=== PATIENT | female | born 1985 | race African-American/Black ===

== ENCOUNTER 2019-03-17 17:12 | Emergency (ER) | payer OTHER | END 2019-03-17 17:34 | disposition left against medical advice (07) | LOC: ER 17:12 | DX: Z53.21 Procedure and treatment not carried out due to patient leaving prior to being seen by health care provider (principal) ==

== ENCOUNTER 2019-11-28 03:41 | Emergency (ER) | payer BC, OTHER ==
[2019-11-28 04:39] LABS: HEMATOCRIT 40.2 % (36.0-47.0); HEMOGLOBIN 13.6 g/dL (12.0-15.5); MEAN CORPUSCULAR HEMOGLOBIN 29.9 pg (27.0-33.4); MEAN CORPUSCULAR HGB CONC 33.8 g/dL (32.0-36.0); MEAN CORPUSCULAR VOLUME 88 fl (80-97); PLATELET COUNT 409 10^3/uL (150-450); RED BLOOD COUNT 4.55 10^6/uL (3.72-5.28); RED CELL DISTRIBUTION WIDTH 14.1 % (11.5-14.0); WHITE BLOOD COUNT 25.4 10^3/uL (4.0-10.5)
[2019-11-28 04:49] LABS: ALBUMIN 3.7 g/dL (3.5-5.0); ALKALINE PHOSPHATASE 199 U/L (38-126); ANION GAP 12 (5-19); ASPARTATE AMINO TRANSFERASE 18 U/L (14-36); BILIRUBIN,DIRECT 0.4 mg/dL (0.0-0.4); BILIRUBIN,TOTAL 0.6 mg/dL (0.2-1.3); BLOOD UREA NITROGEN 6 mg/dL (7-20); CALCIUM 9.5 mg/dL (8.4-10.2); CARBON DIOXIDE 26 mmol/L (22-30); CHLORIDE 98 mmol/L (98-107); CREATINE KINASE 40 U/L (30-135); GLUCOSE 182 mg/dL (75-110); POTASSIUM 3.3 mmol/L (3.6-5.0); TOTAL PROTEIN 8.1 g/dL (6.3-8.2)
[2019-11-28 05:00] LABS: ABSOLUTE LYMPHOCYTES# (MANUAL) 2.5 10^3/uL (0.5-4.7); ABSOLUTE MONOCYTES # (MANUAL) 1.8 10^3/uL (0.1-1.4); BASOPHILS % (MANUAL) 0 % (0-2); EOSINOPHILS % (MANUAL) 0 % (0-6); LYMPHOCYTES % (MANUAL) 9 % (13-45); MONOCYTES % (MANUAL) 7 % (3-13); SEGMENTED NEUTROPHILS % (MAN) 83 % (42-78); TOTAL CELLS COUNTED 100
[2019-11-28 05:03] LABS: ANISOCYTOSIS SLIGHT; POIKILOCYTOSIS SLIGHT; TOXIC GRANULATION 1+; TOXIC VACUOLATION PRESENT
[2019-11-28 05:04] LABS: OVALOCYTES SLIGHT; PLATELET COMMENT ADEQUATE
[2019-11-28 05:14] LABS: CREATINE KINASE MB < 0.22 ng/mL (<4.55); TROPONIN I < 0.012 ng/mL
--- NOTE | 2019-11-28 05:31 | RADIOLOGY REPORT (SQ) ---
EXAM DESCRIPTION: XR CHEST 1 VIEW COMPLETED DATE/TME: 11/28/2019 04:34 CLINICAL HISTORY: 34 years, Female, chest pain COMPARISON: None. NUMBER OF VIEWS: 1 TECHNIQUE: Portable chest LIMITATIONS: None. FINDINGS: Left perihilar airspace opacity likely reflecting pneumonia. No pneumothorax. The heart size is normal IMPRESSION: Left perihilar pneumonia copyright 2010 [employer]- All Rights Reserved
[2019-11-28] MEDS ORDERED: ACETAMINOPHEN 325 MG TABLET PO ONE (05:57)
--- NOTE | 2019-11-28 07:03 | EKG REPORT ---
SEVERITY:- ABNORMAL ECG - SINUS TACHYCARDIA LEFT ATRIAL ABNORMALITY NONSPECIFIC ST-T CHANGES , DIFFUSE : Confirmed by: Isaac Thompson MD 28-Nov-2019 07:03:05
[2019-11-28] MEDS ORDERED: RINGERS SOLUTION,LACTATED 1,000 ML IV ONE (07:33)
[2019-11-28] MEDS ORDERED: KETOROLAC TROMETHAMINE INJ/PF 30 MG/1 ML SDV IV ONE (07:33)
[2019-11-28] MEDS ORDERED: CEFTRIAXONE 1 GM/D5W RTU 1 GM/50 ML RTUPB IV ONE (07:37)
--- NOTE | 2019-11-28 08:07 | ER Document Report ---
Entered by TABBY EDEN SCRIBE 11/28/19 0721 Acting as scribe for:CARIDAD VIDAL MD ED General - General Chief Complaint: Chest Pain Stated Complaint: CHEST PAIN ON LEFT SIDE Time Seen by Provider: 11/28/19 07:16 Primary Care Provider: DOMINIQUE WILLS MD [Primary Care Provider] - Follow up as needed Mode of Arrival: Ambulatory Information source: Patient Notes: This 34 year old female patient with a history of diabetes presents to the ED today with complaints of reproducible chest pain and an associated nonproductive cough that began x2-3 days ago. Patient states that her symptoms have gotten progressively worse since onset. Patient states that she was seen at urgent care x1 days for her symptoms where she had a negative flu and strep test and was prescribed a z-remington and tamiflu for a possible virus. Patient notes that the pain is worse when she lays on her side or coughs, stating her chest is "tight and uncomfortable". Patient states that she has been taking Humalog and Insulin for her diabetes for the past x16-17 years and the she has a nuvaring. Patient denies sputum production or nasal discharge. 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 denies: Nose discharge Cardiovascular: See HPI, Chest pain - reproducible Respiratory: See HPI, Cough. denies: Sputum Gastrointestinal: No symptoms reported Genitourinary: No symptoms reported Female Genitourinary: No symptoms reported Musculoskeletal: No symptoms reported Skin: No symptoms reported Hematologic/Lymphatic: No symptoms reported Neurological/Psychological: No symptoms reported -: Yes All other systems reviewed and negative Physical Exam - Vital signs Vitals: Temp Pulse Resp BP Pulse Ox 98.7 F 127 H 17 127/78 H 96 11/28/19 04:01 11/28/19 04:01 11/28/19 04:01 11/28/19 04:01 11/28/19 04:01 - General General appearance: Alert - HEENT Head: Normocephalic, Atraumatic Eyes: Normal Pupils: PERRL - Respiratory Respiratory status: No respiratory distress Chest status: Nontender Breath sounds: Nonproductive cough - Dry Chest palpation: Normal - Cardiovascular Rhythm: Tachycardia Heart sounds: Normal auscultation Murmur: No - Abdominal Inspection: Normal Distension: No distension Bowel sounds: Normal Tenderness: Nontender - Abdomen soft Organomegaly: No organomegaly - Back Back: Normal, Nontender - Extremities General upper extremity: Normal inspection General lower extremity: Normal inspection - Neurological Neuro grossly intact: Yes - Psychological Associated symptoms: Normal affect, Normal mood - Skin Skin Temperature: Warm Skin Moisture: Diaphoretic Skin Color: Normal Course - Vital Signs Vital signs: Temp Pulse Resp BP Pulse Ox 98.4 F 127 H 30 H 126/69 H 98 11/28/19 07:10 11/28/19 04:01 11/28/19 07:01 11/28/19 07:01 11/28/19 07:01 - Laboratory Result Diagrams: 11/28/19 03:45 11/28/19 03:45 Laboratory results interpreted by me: 11/28/19 11/28/19 03:45 03:45 WBC 25.4 H RDW 14.1 H Seg Neuts % (Manual) 83 H Lymphocytes % (Manual) 9 L Abs Neuts (Manual) 21.1 H Abs Monocytes (Manual) 1.8 H Sodium 136.1 L Potassium 3.3 L BUN 6 L Glucose 182 H Alkaline Phosphatase 199 H Discharge - Discharge Clinical Impression: Pneumonia Qualifiers: Pneumonia type: due to unspecified organism Laterality: left Lung location: unspecified part of lung Qualified Code(s): J18.9 - Pneumonia, unspecified organism Leukocytosis Qualifiers: Leukocytosis type: unspecified Qualified Code(s): D72.829 - Elevated white blood cell count, unspecified Condition: Stable Disposition: HOME, SELF-CARE Additional Instructions: Pneumonia: Your examination indicates that you have pneumonia. This is an infection of the lung tissue, usually caused by bacteria or a virus. Symptoms include cough, fever, shaking chills, chest pain, shortness of breath, and coughing up bloody sputum. Treatment for bacterial pneumonia includes rest, antibiotics for 10 to 14 days, increasing your clear liquid intake, a cool mist humidifier at your bedside, and fever medication. Often, a repeat chest X-ray is performed in a few weeks--even if you feel better--to ascertain whether the infection has completely resolved and no underlying lung problem is present. You should call the physician if you develop persistent vomiting, high fever that does not respond to fever medication, increasing shortness of breath, confusion, or lethargy. Also, failure to improve within two to three days is an indication for re-examination. Continue taking the azithromycin that was prescribed yesterday. Stop taking the Tamiflu. Start taking the Omnicef/cefdinir that was prescribed today. Start taking this medication tomorrow morning. Drink plenty of fluids and get plenty of rest. Take Tylenol and ibuprofen for pain and fever. Follow-up with your primary care provider if not improving. RETURN TO THE EMERGENCY ROOM IF ANY NEW OR WORSENING SYMPTOMS. Prescriptions: Cefdinir [Omnicef 300 mg Capsule] 1 cap PO BID #20 capsule Forms: Return to Work Referrals: DOMINIQUE WILLS MD [Primary Care Provider] - Follow up as needed Scribe Attestation: 11/28/19 08:07 I personally performed the services described in the documentation, reviewed and edited the documentation which was dictated to the scribe in my presence, and it accurately records my words and actions. I personally performed the services described in the documentation, reviewed and edited the documentation which was dictated to the scribe in my presence, and it accurately records my words and actions.
[2019-11-28 10:03] VITALS: BP 120/75
== END 2019-11-28 09:48 | disposition home or self-care (01) ==
LOC: ER 03:41
DX: J18.9 Pneumonia, unspecified organism (principal); D72.829 Elevated white blood cell count, unspecified; R07.9 Chest pain, unspecified; R05 Cough; E10.9 Type 1 diabetes mellitus without complications; Z79.4 Long term (current) use of insulin
CPT/HCPCS: 93005; 99285; 96375; 96365; 36415; 82553; 82550; 84703; 85025; 80053; 84484; 71045; 93010; J1885; J7120; J0696